=== PATIENT | male | born 1990 | race American Indian/Alaskan Native ===

== ENCOUNTER 2017-10-01 18:38 | Emergency (ER) | payer OTHER ==
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
[2017-10-02] MEDS ORDERED: TYLENOL PO ONE (04:17)
[2017-10-02] MEDS ORDERED: FLEXERIL PO ONE (04:17)
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
[2017-10-02 07:26] VITALS: BP 133/91
== END 2017-10-02 07:24 | disposition home or self-care (01) ==
LOC: ED 18:38
DX: S09.90XA Unspecified injury of head, initial encounter (principal); M54.2 Cervicalgia; R20.0 Anesthesia of skin; F17.200 Nicotine dependence, unspecified, uncomplicated; V89.2XXA Person injured in unspecified motor-vehicle accident, traffic, initial encounter; Y93.89 Activity, other specified; Y99.8 Other external cause status; Y92.410 Unspecified street and highway as the place of occurrence of the external cause
CPT/HCPCS: 70450; 72125; 72128; 99283